=== PATIENT | female | born 2000 | race Caucasian/White ===

== ENCOUNTER 2024-02-05 22:45 | Observation (INO) ==
--- NOTE | 2024-02-05 23:00 | Emergency Department Note ---
Impression & Plan Acute appendicitis ED Provider Note CHIEF COMPLAINT: Abdominal pain HISTORY OF PRESENTING ILLNESS: This 23-year-old female patient presents to the emergency department for evaluation of abdominal pain, nausea, vomiting since 1500 today. The pain is worse in the middle of the abdomen, but extends to the upper and lower abdomen as well. She has continued nausea, but only 2 episodes of vomiting. She had a BM without improvement of her symptoms. Denies diarrhea, but her stools were a little softer than normal. Denies any urinary symptoms. Denies vaginal discharge, but has had symptoms like a yeast infection for the past couple weeks. She tried OTC Monistat without improvement. She states that she uses protection every time and feels like she is low risk for STI. LMP 5 days ago. She does not feel like there is a chance of . She denies chest pain or SOB, but sometimes the abdominal pain feels like it radiates up towards her chest. She rates her discomfort as 8/10. No previous abdominal surgeries. She had Chic-kallie-A at 6 pm. She had a few sips of water when she first came to the ER, but no water in the last 2 hours. REVIEW OF SYSTEMS: See HPI for pertinent positives and pertinent negatives. ALLERGIES: NKDA MEDICATIONS: None PAST MEDICAL HISTORY: Denies pertinent past medical or pertinent past surgical history PHYSICAL EXAM: VITALS: Vitals are noted on the nurse's note and reviewed by myself. GENERAL: Non toxic, in no acute distress, non-diaphoretic. SKIN: Capillary refill <2 sec. EYES: PERRLA. EOMI. Conjunctivae without injection, sclerae without icterus. NOSE: Patent without discharge. MOUTH: Mucous membranes moist. Uvula midline. Airway patent. NECK: Supple without nuchal rigidity. HEART: Regular rate and rhythm without murmurs gallops or rubs. LUNGS: Clear to auscultation bilaterally without wheezes, rales or rhonchi. No retractions or accessory muscle use. ABDOMEN: Positive bowel sounds x 4. Normal tympanic percussion. Soft, nontender to palpation. No masses or hepatosplenomegaly. Iverson sign negative. No CVA tenderness. No guarding, rigidity, or rebound tenderness. No focal RLQ or LLQ tenderness. PELVIC EXAM: Permission to perform the exam. Lemon Grower in the room for the exam. External genitalia normal. Vaginal canal with a thick yellowish and white discharge. Cervical os is closed. Cervix is erythematous, but without lesions and no cervical motion tenderness. Uterus is small and nontender. Adnexa nontender without obvious masses. MUSCULOSKELETAL: No gross musculoskeletal defects. NEURO: Patient was alert and oriented. No focal neurological deficits. DIFFERENTIAL DIAGNOSIS: Differential diagnosis includes hepatitis, pancreatitis, cholecystitis, cholelithiasis, appendicitis, kidney stone, pyelonephritis, UTI, gastritis, gastroenteritis, mesenteric adenitis, obstruction, constipation, hernia, abdominal abscess, perforation, diverticulitis, IBD, ischemic colitis, abdominal aortic aneurysm, , ectopic , ovarian cyst, ovarian torsion, acute salpingitis, or others. ED COURSE AND MEDICAL DECISION MAKING: MEDICATIONS GIVEN: Toradol 10 mg IV, Zofran 4 mg IV, Pepcid 20 mg IV, Tylenol 1000 mg IV. 1 L normal saline solution bolus. Diflucan 150 mg p.o. Rocephin 500 mg IV. Diflucan 150 mg p.o. Zosyn 4.5 g IV. INTERPRETATION OF LABS: I interpreted the labs with full lab results as below in the lab section of this note. Pertinent lab results discussed in the MDM section below. INTERPRETATION OF IMAGING: Imaging studies were interpreted by myself and read by radiology as per the imaging section of this note. CT scan of the abdomen pelvis with IV contrast shows changes of acute appendicitis with no evidence for perforation or abscess noted. There is associated mild free fluid in the pelvis. CONSULTATIONS: Martha Moran PA-C of general surgery MDM SUMMARY: I examined the patient. The patient started with abdominal pain, nausea, and vomiting at 1500 today. The symptoms have been intermittent since that time. The patient has also been having yeast infection type symptoms for the past couple weeks that did not improve with Monistat. She denies any other symptoms. On initial exam, the patient has no tenderness to palpation of the abdomen. Pelvic exam showed thick yellow and white discharge with vaginal and cervical erythema. I discussed CT scan imaging with the patient, but initially she declined. An IV lock was placed and labs were drawn. The patient was given Toradol 10 mg IV and Zofran 4 mg IV with improvement of her pain. White blood cell count normal at 7.28. Hemoglobin normal at 13.5. Platelet count normal at 370. Potassium 3.3, but CMP otherwise without significant abnormalities. Lipase is normal. Urinalysis with 2+ ketones, but no evidence for infection or blood. Urine test negative. Vaginal cultures and STI testing still pending. The patient initially had no tenderness to palpation on exam and her pain had improved after the IV Toradol and Zofran. Pelvic exam revealed a discharge concerning for a possible yeast infection as well as possible STI. The patient was given Diflucan 150 mg p.o. to cover for a possible yeast infection as well as Rocephin 500 mg IV to cover for possible gonorrhea. The plan was initially to then give the patient a doxycycline home pack and prescription. However, on reassessment the patient states that she is still having intermittent abdominal pain and was hesitant to be discharged home. I offered the patient a CT scan of her abdomen pelvis, but she wanted to try additional medication for her symptoms first. The patient was then given Tylenol 1000 mg IV and Pepcid 20 mg IV. She was given 1 L normal saline solution bolus due to the 2+ ketones in her urine. The patient was reassessed after this treatment. The patient only had mild tenderness to palpation on exam, but she continued with intermittent episodes of more significant pain. The patient stated that her symptoms and pain seem to be getting progressively worse. I discussed further workup including CT scan of the abdomen pelvis with the patient, but she was still undecided. The patient discussed her symptoms with her mother. The patient was then agreeable to CT scan of the abdomen and pelvis for further evaluation of her symptoms. CT scan of the abdomen pelvis with IV contrast shows changes of acute appendicitis with no evidence for perforation or abscess noted. There is associated mild free fluid in the pelvis. The patient was given Zosyn 4.5 g IV. I spoke with Martha Moran PA-C of general surgery who evaluated the patient in the ER. The patient will be admitted and surgery plans to take the patient to the OR in the morning. Please refer to surgery's dictation for further details. The patient's care was transferred in stable condition. DIAGNOSIS: Acute appendicitis Past Med/Surg History Problem List (Updated 02/06/24 @ 07:41 by Pushpa Fitch PA-C) Acute appendicitis (Acute) Medical History No acute medical problems Surgical History No pertinent past surgical history Social History Smoking Status: Never smoker Second Hand Exposure: No; Do You Dip or Chew Tobacco: No; Tobacco Cessation Education Requested by Patient: No Hx Alcohol Use: Yes Hx Substance Use: No Preferred Language: Kittitian Communication Ability: Effective Vp Packaging Required: No Beliefs That Will Affect Care: None Current Living Situation: Other Current Living Situation Comment: Off campus apartment Other Information That Helps Us Care for You: No Feels Safe at Home: Yes Safety Concerns: Feels Safe At This Time Assistive Devices: None Allergies Allergies Allergy/AdvReac Type Severity Reaction Status Date / Time No Known Allergies Allergy Verified 02/05/24 23:07 Home Meds Home Medications Medication Instructions Recorded Confirmed No Known Home Medications 02/05/24 02/05/24 Results & Data (ED) Vital Signs Vital Signs - 24 hr 02/05/24 22:48 02/05/24 23:15 02/05/24 23:30 Temperature 36.2 C L Temperature Source Temporal Artery Scan Pulse Rate 100 H 73 80 Pulse Rate from SpO2 Sensor 77 Respiratory Rate 18 17 Respiratory Effort / Characteristics Non-Labored Respiratory Depth Normal Blood Pressure 157/90 H 121/82 Blood Pressure Mean 112 97 Pulse Oximetry 97 99 Oxygen Delivery Method Room Air Room Air Sepsis Recent Fever Within 48 Hours No Sepsis New/Unexplained Change in Mental Status No Sepsis Action Taken by Nursing No Action Required 02/05/24 23:35 02/06/24 00:00 02/06/24 00:30 Temperature Temperature Source Pulse Rate 87 74 Pulse Rate from SpO2 Sensor Respiratory Rate 22 18 Respiratory Effort / Characteristics Respiratory Depth Blood Pressure 131/85 121/91 Blood Pressure Mean 102 97 Pulse Oximetry 98 99 100 Oxygen Delivery Method Room Air Room Air Room Air Sepsis Recent Fever Within 48 Hours Sepsis New/Unexplained Change in Mental Status Sepsis Action Taken by Nursing 02/06/24 01:00 02/06/24 02:00 02/06/24 02:30 Temperature Temperature Source Pulse Rate 70 70 78 Pulse Rate from SpO2 Sensor 74 70 76 Respiratory Rate 19 17 20 Respiratory Effort / Characteristics Respiratory Depth Blood Pressure 117/83 105/67 113/82 Blood Pressure Mean 92 79 92 Pulse Oximetry 97 97 98 Oxygen Delivery Method Room Air Room Air Room Air Sepsis Recent Fever Within 48 Hours Sepsis New/Unexplained Change in Mental Status Sepsis Action Taken by Nursing 02/06/24 03:00 Temperature Temperature Source Pulse Rate 79 Pulse Rate from SpO2 Sensor Respiratory Rate 18 Respiratory Effort / Characteristics Respiratory Depth Blood Pressure 118/92 Blood Pressure Mean 101 Pulse Oximetry 98 Oxygen Delivery Method Room Air Sepsis Recent Fever Within 48 Hours Sepsis New/Unexplained Change in Mental Status Sepsis Action Taken by Nursing Laboratory Data 02/06/24 06:10 02/06/24 06:10 Lab Results 02/05/24 02/05/24 Range/Units 22:58 23:07 WBC 7.28 (4.8-10.8) K/ul RBC 4.50 (4.20-5.40) M/uL Hgb 13.5 (12.0-16.0) g/dl Hct 39.9 (37.0-47.0) % MCV 88.7 (80.0-100.0) fL MCH 30.0 (25.0-34.0) pg MCHC 33.8 (32.0-36.0) g/dL RDW Std Deviation 37.0 (36.4-46.3) fL RDW Coeff of Brielle 11.5 (11.5-14.5) % Plt Count 370 (130-400) K/uL MPV 9.8 (9.4-12.4) fL Immature Gran % (Auto) 0.3 % Neut % (Auto) 75.3 % Lymph % (Auto) 15.9 % Lamb % (Auto) 6.5 % Eos % (Auto) 1.2 % Baso % (Auto) 0.8 % Neut # (Auto) 5.48 (1.40-6.50) K/uL Lymph # (Auto) 1.16 L (1.20-3.40) K/uL Lamb # (Auto) 0.47 (0.11-0.59) K/uL Eos # (Auto) 0.09 (0.00-0.50) K/uL Baso # (Auto) 0.06 (0.00-0.20) K/uL Immature Gran # (Auto) 0.02 (0.01-0.20) K/uL Sodium 137 (136-145) mmol/L Potassium 3.3 L (3.5-5.1) mmol/L Chloride 99 (98-107) mmol/L Carbon Dioxide 27 (21-32) mmol/L Anion Gap 11 (3-11) BUN 11 (6-23) mg/dl Creatinine 0.68 (0.6-1.2) mg/dl Est Cr Clr Drug Dosing 108.3 ml/min eGFR 126.99 BUN/Creatinine Ratio 16.2 (10-20) Glucose 94 (70-99(Fasting)) mg/dl Calcium 10.4 H (8.6-10.3) mg/dl Total Bilirubin 0.5 (0.2-1.0) mg/dl AST 16 (13-39) U/L ALT 11 (7-52) U/L Alkaline Phosphatase 41 (34-104) U/L Total Protein 8.2 (6.0-8.3) gm/dl Albumin 5.3 H (3.4-5.0) gm/dl Globulin 2.9 (2.5-4.0) gm/dl Albumin/Globulin Ratio 1.8 (0.9-2) Lipase 15 (11-82) U/L Urine Color Yellow Urine Appearance Cloudy A (Clear) Urine pH 6.0 (4.5-7.5) Ur Specific [place] 1.034 H (1.000-1.030) Urine Protein Negative (Negative) Urine Glucose (UA) Negative (Negative) Urine Ketones 2+ H (Negative) Urine Blood Negative (Negative) Urine Nitrite Negative (Negative) Urine Bilirubin Negative (Negative) Urine Urobilinogen Negative (Negative) Ur Leukocyte Esterase Negative (Negative) Urine WBC (Auto) 0-5 (0-5) /hpf Urine RBC (Auto) 0-2 (0-2) /hpf U Hyaline Cast (Auto) 3-5 H (0-2) /lpf U Epithel Cells (Auto) 3-5 H (0-2) /hpf Urine Bacteria (Auto) 2+ H (None Seen) Urine Test Negative (Negative) Administered Medications Acetaminophen (Ofirmev) 1,000 mg in 100 mls @ 400 mls/hr IV Q8H PRN PRN Reason: Pain Stop: 02/09/24 04:17 Last Infusion: 02/06/24 05:12 Dose: Infused Documented By: Admin: 02/06/24 04:31 Dose: 400 mls/hr Documented By: OWEN Lactated Ringer's (Lr) 1,000 mls @ 80 mls/hr IV .[id number] TYLER Stop: 02/07/24 05:17 Last Admin: 02/06/24 04:33 Dose: 80 mls/hr Documented By: OWEN Discontinued Medications Fluconazole (Fluconazole 50 Mg Tab) 150 mg PO NOW ONE Stop: 02/05/24 23:49 Last Admin: 02/06/24 00:01 Dose: 150 mg Documented By: JACOBO Famotidine (Pepcid 20mg Iv Push) 20 mg in 5 mls @ 2.5 mls/min IV NOW STA Stop: 02/05/24 23:08 Last Admin: 02/05/24 23:12 Dose: 2.5 mls/min Documented By: MARIAMA Acetaminophen (Ofirmev) 1,000 mg in 100 mls @ 400 mls/hr IV NOW STA Stop: 02/06/24 00:02 Last Infusion: 02/06/24 00:20 Dose: Infused Documented By: Admin: 02/06/24 00:01 Dose: 400 mls/hr Documented By: JACOBO Sodium Chloride (Nss) 1,000 mls @ 999 mls/hr IV .Q1H1M ONE Stop: 02/06/24 00:48 Last Infusion: 02/06/24 01:06 Dose: Infused Documented By: Admin: 02/06/24 00:02 Dose: 999 mls/hr Documented By: JACOBO Ceftriaxone Sodium 500 mg/ (Dextrose) 55 mls @ 110 mls/hr IV NOW STA Stop: 02/06/24 00:17 Last Infusion: 02/06/24 01:06 Dose: Infused Documented By: Admin: 02/06/24 00:22 Dose: 110 mls/hr Documented By: JACOOB Piperacillin Sod/Tazobactam Sod (Zosyn) 4.5 gm in 100 mls @ 200 mls/hr IV NOW ONE; Protocol Stop: 02/06/24 03:23 Last Infusion: 02/06/24 04:03 Dose: Infused Documented By: Admin: 02/06/24 03:21 Dose: 200 mls/hr Documented By: JACOBO Ioversol (Optiray 320 100ml) 100 ml IV ONCE ONE Stop: 02/06/24 01:26 Last Admin: 02/06/24 01:25 Dose: 93 ml Documented By: LESLIE Ketorolac Tromethamine (Ketorolac Tromethamine 15 Mg/Ml Vial) 10 mg IV NOW STA Stop: 02/05/24 23:08 Last Admin: 02/05/24 23:12 Dose: 10 mg Documented By: MARIAMA Ondansetron HCl (Ondansetron Inj 2 Mg/Ml 2 Ml Vial) 4 mg IV NOW STA Stop: 02/05/24 23:08 Last Admin: 02/05/24 23:12 Dose: 4 mg Documented By: MARIAMA Imaging Data Radiologist's Impression: Abdomen/Pelvis CT 02/06/24 01:07 EXAM: CT abd pelvis IV con only CLINICAL HISTORY: 93 ml optiray 320, pain at mid abd TECHNIQUE: Multiple contiguous axial images were obtained from the level of diaphragm to the pubis symphysis. This study was acquired after the IV administration of iodinated contrast material, given the patient's indications for the examination. If IV contrast material had not been administered, the likelihood of detecting abnormalities relevant to the patient's condition would have been substantially decreased. Coronal and sagittal reformatted images were generated and reviewed to improve anatomic localization and optimize lesion detection. CT scan was performed according to ALARA (as low as reasonably achievable). COMPARISON: None. FINDINGS: The visualized lung bases are clear. ABDOMEN/PELVIS: The liver is normal in size and attenuation. No focal liver lesions are seen. There is no intra or extrahepatic biliary ductal dilatation. Hepatic vasculature is patent. The gallbladder is unremarkable. The spleen, pancreas, and adrenal glands are unremarkable. The kidneys are normal in size and attenuation. There is no hydronephrosis or perinephric fat stranding. No renal calculi or renal masses are identified. The ureters are normal in caliber and no ureteral calculi are seen. The bladder is normal in contour. No evidence of focal or diffuse bowel wall thickening or evidence of bowel obstruction is seen. Appendix is dilated measuring 11 mm in diameter. Hypodense fluid is noted within it. Small appendicolith is noted. Mild periappendiceal fat stranding is noted. No signs of perforation. Reactive cecal wall edema is noted. Tip of the inflamed appendix is reaching up to the right adnexa which is not seen separately from it. Few small reactive lymph nodes are noted in the right iliac fossa. Mild free fluid is noted in the pelvis. The aorta is normal in caliber. No aggressive appearing osseous lesions are identified. IMPRESSION: 1. Changes of acute appendicitis as described above. No signs of perforation are noted. 2. Associated mild free fluid is noted in the pelvis. Electronically signed by Alpesh Blancas 02-06-2024 02:27 AM Discharge Plan Visit Data Chief Complaint: Abdominal Pain Stated Complaint: ABD PAIN, NAUSEA, VOMITING, ED Provider: Yari Frazier ED Midlevel Provider: Pushpa Fitch Discharge Problem: Acute appendicitis Patient Disposition: Admitted As Inpatient Condition: Good Discharge Instructions Interventions: ED Discharge Assessment Last Done: 02/06/24 04:03 Discharge Problem: Acute appendicitis Qualifiers: Acute appendicitis type: unspecified acute appendicitis type Qualified Code(s): K35.80 - Unspecified acute appendicitis
[2024-02-05] MEDS: KETOROLAC TROMETHAMINE 15 MG/ML VIAL IV STA (23:12)
[2024-02-05] MEDS: FAMOTIDINE 20MG IV PUSH 20 MG/5 ML SYR IV STA (23:12)
[2024-02-05] MEDS: ONDANSETRON INJ 2 MG/ML 2 ML VIAL IV STA (23:12)
[2024-02-05 23:24] LABS: Appearance Urine Cloudy (Clear); Bacteria Urine Automated 2+ (None Seen); Bilirubin Urine Negative (Negative); Blood Urine Negative (Negative); Color Urine Yellow; Glucose Urine UA Negative (Negative); Ketones Urine 2+ (Negative); Leukocyte Esterase Urine Negative (Negative); Nitrite Urine Negative (Negative); Pregnancy Test, Urine Negative (Negative); Protein Urine Negative (Negative); RBC Urine Automated 0-2 /hpf (0-2); Specific Gravity Urine 1.034 (1.000-1.030); Urobilinogen Urine Negative (Negative); WBC Urine Automated 0-5 /hpf (0-5)
[2024-02-05 23:31] LABS: Basophils # (auto) 0.06 K/uL (0.00-0.20); Basophils % (auto) 0.8 %; Eosinophils # (auto) 0.09 K/uL (0.00-0.50); Eosinophils % (auto) 1.2 %; Hematocrit (blood only) 39.9 % (37.0-47.0); Hemoglobin 13.5 g/dl (12.0-16.0); Immature Granulocytes # (auto) 0.02 K/uL (0.01-0.20); Immature Granulocytes % (auto) 0.3 %; Lymphocytes # (auto) 1.16 K/uL (1.20-3.40); Lymphocytes % (auto) 15.9 %; Mean Corpuscular Hgb Conc 33.8 g/dL (32.0-36.0); Mean Corpuscular Volume 88.7 fL (80.0-100.0); Mean Platelet Volume 9.8 fL (9.4-12.4); Monocytes # (auto) 0.47 K/uL (0.11-0.59); Monocytes % (auto) 6.5 %; Neutrophils # (auto) 5.48 K/uL (1.40-6.50); Neutrophils % (auto) 75.3 %; Platelet Count 370 K/uL (130-400); RDW Coefficient of Variation 11.5 % (11.5-14.5); White Blood Count 7.28 K/ul (4.8-10.8)
[2024-02-05 23:46] LABS: Albumin Globulin Ratio 1.8 (0.9-2); Albumin Level 5.3 gm/dl (3.4-5.0); BUN Creatinine Ratio 16.2 (10-20); Bilirubin,Total 0.5 mg/dl (0.2-1.0); Calcium 10.4 mg/dl (8.6-10.3); Creatinine Clr Calc Pharmacy 108.3 ml/min; Globulin 2.9 gm/dl (2.5-4.0); Potassium 3.3 mmol/L (3.5-5.1); Total Protein 8.2 gm/dl (6.0-8.3)
[2024-02-06] MEDS: FLUCONAZOLE 50 MG TAB PO ONE (00:01)
[2024-02-06] MEDS: ACETAMINOPHEN 1,000 MG/100 ML VIAL IV STA (00:01)
[2024-02-06] MEDS: SODIUM CHLORIDE 0.9% 1,000 ML IV ONE (00:02)
[2024-02-06] MEDS: cefTRIAXone SODIUM 500 MG in DEXTROSE 5% 50 ML IV STA (00:22)
[2024-02-06] MEDS: OPTIRAY 320 100ml IV ONE (01:25)
--- NOTE | 2024-02-06 02:27 | CT Scan Report ---
EXAM: CT abd pelvis IV con only CLINICAL HISTORY: 93 ml optiray 320, pain at mid abd TECHNIQUE: Multiple contiguous axial images were obtained from the level of diaphragm to the pubis symphysis. This study was acquired after the IV administration of iodinated contrast material, given the patient's indications for the examination. If IV contrast material had not been administered, the likelihood of detecting abnormalities relevant to the patient's condition would have been substantially decreased. Coronal and sagittal reformatted images were generated and reviewed to improve anatomic localization and optimize lesion detection. CT scan was performed according to ALARA (as low as reasonably achievable). COMPARISON: None. FINDINGS: The visualized lung bases are clear. ABDOMEN/PELVIS: The liver is normal in size and attenuation. No focal liver lesions are seen. There is no intra or extrahepatic biliary ductal dilatation. Hepatic vasculature is patent. The gallbladder is unremarkable. The spleen, pancreas, and adrenal glands are unremarkable. The kidneys are normal in size and attenuation. There is no hydronephrosis or perinephric fat stranding. No renal calculi or renal masses are identified. The ureters are normal in caliber and no ureteral calculi are seen. The bladder is normal in contour. No evidence of focal or diffuse bowel wall thickening or evidence of bowel obstruction is seen. Appendix is dilated measuring 11 mm in diameter. Hypodense fluid is noted within it. Small appendicolith is noted. Mild periappendiceal fat stranding is noted. No signs of perforation. Reactive cecal wall edema is noted. Tip of the inflamed appendix is reaching up to the right adnexa which is not seen separately from it. Few small reactive lymph nodes are noted in the right iliac fossa. Mild free fluid is noted in the pelvis. The aorta is normal in caliber. No aggressive appearing osseous lesions are identified. IMPRESSION: 1. Changes of acute appendicitis as described above. No signs of perforation are noted. 2. Associated mild free fluid is noted in the pelvis. Electronically signed by Alpesh Blancas 02-06-2024 02:27 AM
[2024-02-06] MEDS: PIPERACILLIN/TAZOBACTAM 4.5 GM/100 ML BAG IV ONE ×2 (03:21→12:20)
--- NOTE | 2024-02-06 03:45 | History & Physical Report ---
Date of Service February 06, 2024 Assessment & Plan (1) Acute appendicitis: Plan: Patient is a 23-year old female who presented to the ED last evening due to ongoing abdominal pain, nausea and vomiting that started around 3pm. Upon workup she was found to have evidence of a dilated appendix of 11mm with a small appendicolith and periappendiceal fat stranding consistent with acute appendicitis. She was evaluated at bedside early this morning and on exam she is tender in the periumbilical region however is nontoxic appearing and has no signs of acute abdomen. She is afebrile, vitals stable, and WBC 7.28. Patient denies any previous abdominal surgeries and otherwise has no other preexisting medical conditions. Patient will be admitted to the surgical service to med/surg floor. Will keep strict NPO and IV hydration with LR IV antibiotic coverage with Zosyn Pain control with IV Tylenol and morphine as needed. Patient will tentatively undergo surgical intervention for appendectomy today and she is in agreement with current plan of care. History of Present Illness Chief Complaint: Abdominal pain Primary Care Provider: [facility] Patient is a 23-year-old female with no significant past medical history, who presented to the ED late last evening due to complaints of abdominal pain, shaina sea and vomiting. Patient states that she started with abdominal pain around 3 PM in the afternoon that progressively worsened throughout the day and evening. Patient states that the pain started in the middle of her abdomen, mostly located in her umbilical region and at times radiates over the lower portions of her abdomen. She states she did try to eat dinner around 6 PM and when she had gotten back to her apartment she had 1 episode of emesis. Patient states that she also did have a bowel movement without any improvement of her symptoms. Upon arrival to the ED she did have an additional episode of emesis as well. Of note, patient states she's had a yeast infection for a week or so and did try [id number] Monistat without improvement, in the ED she did undergo a pelvic exam and was given a dose of Rocephin. Patient states that her last menstrual period ended approximately 5 days ago. Upon workup this evening her labs were WNL however CT A/P revealed dilated appendix at 11mm with a small appendicolith and periappendiceal fat stranding suggestive of acute appendicitis. Patient was seen and evaluated at bedside. She is resting comfortably in bed with stable vitals. She states her abdominal pain is currently well controlled however prior was an 8/10 in severity. On exam she is slightly tender in the mid abdominal region however no signs of peritonitis. Patient denies any previous abdominal surgeries. She denies any changes in bowel or bladder habits or associated fevers or chills with the onset of her symptoms. Allergies Allergy/AdvReac Type Severity Reaction Status Date / Time No Known Allergies Allergy Verified 02/05/24 23:07 Home Medications Medication Instructions Recorded Confirmed Type oxycodone 5 mg tablet 5 - 10 mg (1 - 2 x 5 mg) PO 02/06/24 Rx .[id number] PRN pain, for initial therapy, max 6 tabs per day #15 tabs Past Med/Surg History Problem List (Updated 02/06/24 @ 07:41 by Pushpa Fitch PA-C) Acute appendicitis (Acute) Medical History No acute medical problems Surgical History No pertinent past surgical history Social History Smoking Status: Never smoker Second Hand Exposure: No; Do You Dip or Chew Tobacco: No; Tobacco Cessation Education Requested by Patient: No Hx Alcohol Use: Yes Hx Substance Use: No Preferred Language: Wallisian Communication Ability: Effective 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 Beliefs That Will Affect Care: None Current Living Situation: Other Current Living Situation Comment: Off campus apartment Other Information That Helps Us Care for You: No Feels Safe at Home: Yes Safety Concerns: Feels Safe At This Time Assistive Devices: None Review of Systems Review of Systems: All systems reviewed & are unremarkable except as noted in HPI & below Physical Exam Constitutional: WD/WN, vitals as above Respiratory: normal respiratory effort, lungs clear to auscultation Cardiovascular: RRR, no murmur, no edema Gastrointestinal (Abdomen): Inspection/Auscultation: abdomen normal to inspection and normal bowel sounds; abdomen not distended Percussio n/Palpation: + abdomen tender (periumbilical region ) and abdomen soft; no guarding, abdomen not rigid and abdomen not firm Skin: no rashes, warm and dry Psychiatric: A+Ox3, euthymic affect Results & Data Results & Data Vital Signs (Past 12 Hours) Vital Signs Temp Pulse Resp BP Pulse Ox O2 Del Method 02/06/24 03:00 79 18 118/92 98 Room Air 02/06/24 02:30 78 20 113/82 98 Room Air 02/06/24 02:00 70 17 105/67 97 Room Air 02/06/24 01:00 70 19 117/83 97 Room Air 02/06/24 00:30 74 18 121/91 100 Room Air 02/06/24 00:00 87 22 131/85 99 Room Air 02/05/24 23:35 98 Room Air 02/05/24 23:30 80 17 121/82 99 Room Air 02/05/24 23:15 73 02/05/24 22:48 36.2 C L 100 H 18 157/90 H 97 Room Air Diagnostic Findings EXAM: CT abd pelvis IV con only CLINICAL HISTORY: 93 ml optiray 320, pain at mid abd TECHNIQUE: Multiple contiguous axial images were obtained from the level of diaphragm to the pubis symphysis. This study was acquired after the IV administration of iodinated contrast material, given the patient's indications for the examination. If IV contrast material had not been administered, the likelihood of detecting abnormalities relevant to the patient's condition would have been substantially decreased. Coronal and sagittal reformatted images were generated and reviewed to improve anatomic localization and optimize lesion detection. CT scan was performed according to ALARA (as low as reasonably achievable). COMPARISON: None. FINDINGS: The visualized lung bases are clear. ABDOMEN/PELVIS: The liver is normal in size and attenuation. No focal liver lesions are seen. There is no intra or extrahepatic biliary ductal dilatation. Hepatic vasculature is patent. The gallbladder is unremarkable. The spleen, pancreas, and adrenal glands are unremarkable. The kidneys are normal in size and attenuation. There is no hydronephrosis or perinephric fat stranding. No renal calculi or renal masses are identified. The ureters are normal in caliber and no ureteral calculi are seen. The bladder is normal in contour. No evidence of focal or diffuse bowel wall thickening or evidence of bowel obstruction is seen. Appendix is dilated measuring 11 mm in diameter. Hypodense fluid is noted within it. Small appendicolith is noted. Mild periappendiceal fat stranding is noted. No signs of perforation. Reactive cecal wall edema is noted. Tip of the inflamed appendix is reaching up to the right adnexa which is not seen separately from it. Few small reactive lymph nodes are noted in the right iliac fossa. Mild free fluid is noted in the pelvis. The aorta is normal in caliber. No aggressive appearing osseous lesions are identified. IMPRESSION: 1. Changes of acute appendicitis as described above. No signs of perforation are noted. 2. Associated mild free fluid is noted in the pelvis. Code Status & VTE Plan VTE Prophylaxis Plan VTE Prophylaxis will be ordered: Yes Supervising Physician Co-Signing Physician Notes This case has been discussed with me. I have reviewed this case. This patient will be taken to the operating room for laparoscopic appendectomy. The details of the procedure are explained to the patient and consent is obtained. PG Care Time/CCT Total # of Minutes Spent Total Time Spent with Patient: Total time spent is greater than 50% in coordination of care (as documented) at patient's floor/unit and/or counseling patient: Coding Level of Care Code 92981 INT INP/OBS CARE 40MIN Diagnoses Acute appendicitis K35.80
[2024-02-06] MEDS ORDERED: ONDANSETRON INJ 2 MG/ML 2 ML VIAL IV PRN ×2 (04:18→11:07)
[2024-02-06] MEDS ORDERED: MoRPHine SULFATE 2 MG/ML CARP IV PRN (04:18)
[2024-02-06] MEDS ORDERED: MoRPHine SULFATE 4 MG/ML 1 ML CARP\\VIAL IV PRN (04:18)
[2024-02-06] MEDS: ACETAMINOPHEN 1,000 MG/100 ML VIAL IV PRN (04:31)
[2024-02-06] MEDS: LACTATED RINGER'S 1,000 ML IV SCH (04:33)
[2024-02-06 06:39] LABS: Basophils # (auto) 0.05 K/uL (0.00-0.20); Basophils % (auto) 0.5 %; Eosinophils # (auto) 0.01 K/uL (0.00-0.50); Eosinophils % (auto) 0.1 %; Hematocrit (blood only) 36.2 % (37.0-47.0); Hemoglobin 12.2 g/dl (12.0-16.0); Immature Granulocytes # (auto) 0.02 K/uL (0.01-0.20); Immature Granulocytes % (auto) 0.2 %; Lymphocytes # (auto) 0.98 K/uL (1.20-3.40); Mean Corpuscular Hemoglobin 29.9 pg (25.0-34.0); Mean Corpuscular Hgb Conc 33.7 g/dL (32.0-36.0); Mean Corpuscular Volume 88.7 fL (80.0-100.0); Mean Platelet Volume 9.9 fL (9.4-12.4); Monocytes # (auto) 0.75 K/uL (0.11-0.59); Monocytes % (auto) 7.7 %; Neutrophils # (auto) 7.97 K/uL (1.40-6.50); Neutrophils % (auto) 81.5 %; Platelet Count 334 K/uL (130-400); RDW Coefficient of Variation 11.6 % (11.5-14.5); RDW Standard Deviation 37.3 fL (36.4-46.3); Red Blood Count 4.08 M/uL (4.20-5.40); White Blood Count 9.78 K/ul (4.8-10.8)
[2024-02-06 06:57] LABS: BUN Creatinine Ratio 14.8 (10-20); Calcium 9.5 mg/dl (8.6-10.3); Creatinine Clr Calc Pharmacy 120.7 ml/min; Potassium 3.9 mmol/L (3.5-5.1)
--- NOTE | 2024-02-06 10:33 | Anesthesiology Consultation ---
Date of Service February 06, 2024 Assessment & Plan Chart Review Chart Review: Acceptable Risk for Surgery and Patient NOT seen in Pre Admission Testing Consults Requested none History Surgery Operation Date: 02/06/24 07:00 Proposed Procedures p Laparoscopic Appendectomy - Audra Woodard DO Height/Weight Height: 5 ft 3 in Weight: 54.3 kg Allergies Allergy/AdvReac Type Severity Reaction Status Date / Time No Known Allergies Allergy Verified 02/05/24 23:07 Medications Home Medications Medication Instructions Recorded Confirmed Last Taken oxycodone 5 mg tablet 5 - 10 mg (1 - 2 x 5 mg) PO 02/06/24 Unknown .[id number] PRN pain, for initial therapy, max 6 tabs per day #15 tabs Active Medications Generic Name Dose Route Start Last Admin Trade Name Freq PRN Reason Stop Dose Admin Acetaminophen 1,000 mg in 100 mls @ 400 mls/hr 02/06/24 04:18 02/06/24 05:12 Ofirmev IV 02/09/24 04:17 Infused Q8H PRN Infusion Pain Lactated Ringer's 1,000 mls @ 80 mls/hr 02/06/24 04:18 02/06/24 04:33 Lr IV 02/07/24 05:17 80 mls/hr .[id number] TYLER Administration Past Medical History Medical History No acute medical problems Past Surgical History Surgical History No pertinent past surgical history Social History Smoking Status: Never smoker Do You Dip or Chew Tobacco: No Hx Alcohol Use: Yes alcohol intake frequency: holidays/special occasions only Hx Substance Use: No Physical Exam Vital Signs Last Vital Signs Temp 36.8 C 02/06/24 07:16 Pulse 82 02/06/24 07:16 Resp 16 02/06/24 07:16 BP 112/72 02/06/24 07:16 Pulse Ox 98 02/06/24 07:16 O2 Del Method Room Air 02/06/24 07:16 Testing Laboratory Results 02/06/24 06:10 02/06/24 06:10 Urine Color Yellow 02/05/24 22:58 Urine Appearance Cloudy (Clear) A 02/05/24 22:58 Urine pH 6.0 (4.5-7.5) 02/05/24 22:58 Ur Specific [place] 1.034 (1.000-1.030) H 02/05/24 22:58 Urine Protein Negative (Negative) 02/05/24 22:58 Urine Glucose (UA) Negative (Negative) 02/05/24 22:58 Urine Ketones 2+ (Negative) H 02/05/24 22:58 Urine Nitrite Negative (Negative) 02/05/24 22:58 Ur Leukocyte Esterase Negative (Negative) 02/05/24 22:58 Urine WBC (Auto) 0-5 /hpf (0-5) 02/05/24 22:58 Urine RBC (Auto) 0-2 /hpf (0-2) 02/05/24 22:58 U Hyaline Cast (Auto) 3-5 /lpf (0-2) H 02/05/24 22:58 U Epithel Cells (Auto) 3-5 /hpf (0-2) H 02/05/24 22:58 Urine Bacteria (Auto) 2+ (None Seen) H 02/05/24 22:58 Urine Test Negative (Negative) 02/05/24 22:58 02/05/24 22:58 Urine Test Negative
[2024-02-06] MEDS ORDERED: ARTIFICIAL TEARS OP OINT 3.5 GM TUBE ONE (10:34)
[2024-02-06] MEDS ORDERED: MIDAZOLAM HCL 1 MG/ML 2ML VIAL ONE (10:37)
[2024-02-06] MEDS ORDERED: fentaNYL citrate PF 100 MCG/2 ML VIAL ONE (10:37)
[2024-02-06] MEDS ORDERED: PROPOFOL IV EMULSION 10 MG/ML 20 ML VIAL IV ONE (10:40)
[2024-02-06] MEDS ORDERED: LIDOCAINE 2% 2 ML VIAL/AMP(20MG/ML) INFIL ONE (10:40)
[2024-02-06] MEDS ORDERED: ATROPINE SULFATE 0.1 MG/ML 10ML SYR IV PRN (11:07)
[2024-02-06] MEDS ORDERED: ePHEDrine sulfate 50 MG/ML AMP IV PRN (11:07)
[2024-02-06] MEDS ORDERED: fentaNYL citrate PF 100 MCG/2 ML VIAL IV PRN (11:07)
[2024-02-06 11:11] LABS: Bacterial Vaginosis RNA Negative (Negative)
[2024-02-06 11:26] LABS: Candida glabrata RNA Negative (Negative); Candida species group RNA Negative (Negative); Trichomonas vaginalis RNA Negative (Negative)
[2024-02-06] MEDS ORDERED: ONDANSETRON INJ 2 MG/ML 2 ML VIAL ONE (11:34)
[2024-02-06] MEDS ORDERED: DEXAMETHASONE SOD INJ 4 MG/ML VIAL ONE (11:34)
[2024-02-06 11:38] LABS: Mycoplasma Genitalium RNA Negative (Negative)
[2024-02-06] MEDS ORDERED: ePHEDrine sulfate 50 MG/5 ML SYR ONE (11:56)
[2024-02-06] MEDS ORDERED: ceFAZolin 330 MG/ML 1 GM VIAL ONE (12:04)
[2024-02-06] MEDS ORDERED: SUGAMMADEX SODIUM 200 MG/2 ML VIAL IV ONE (12:20)
[2024-02-06] MEDS: BUPIVACAINE/EPINEPHRINE 0.5% MPF 1:200,000 30 ML VIAL ONE (12:28)
--- NOTE | 2024-02-06 12:50 | Anesthesiology Progress Note ---
Date of Service February 06, 2024 Anesthesia Post Procedure Vital Signs Vital Signs: Temp Pulse Pulse Resp BP BP BP 02/06/24 10:39 36.6 C 85 20 130/66 02/06/24 07:16 36.8 C 82 16 112/72 02/06/24 04:15 36.9 C 16 118/78 02/06/24 03:30 89 18 113/72 02/06/24 03:00 79 18 118/92 02/06/24 02:30 78 20 113/82 02/06/24 02:00 70 17 105/67 02/06/24 01:00 70 19 117/83 02/06/24 00:30 74 18 121/91 02/06/24 00:00 87 22 131/85 02/05/24 23:35 02/05/24 23:30 80 17 121/82 02/05/24 23:15 73 02/05/24 22:48 36.2 C L 100 H 18 157/90 H Pulse Ox O2 Del Method 02/06/24 10:39 99 Room Air 02/06/24 07:16 98 Room Air 02/06/24 04:15 99 Room Air 02/06/24 03:30 02/06/24 03:00 98 Room Air 02/06/24 02:30 98 Room Air 02/06/24 02:00 97 Room Air 02/06/24 01:00 97 Room Air 02/06/24 00:30 100 Room Air 02/06/24 00:00 99 Room Air 02/05/24 23:35 98 Room Air 02/05/24 23:30 99 Room Air 02/05/24 23:15 02/05/24 22:48 97 Room Air Pain Intensity Abdomen: Pain Intensity: 6 Transfer of Care Handoff Completed per policy Notes Mental Status: alert / awake / arousable Patient Amnestic to Procedure: Yes Nausea / Vomiting: adequately controlled Pain: adequately controlled Airway Patency, RR, SpO2: stable & adequate BP & HR: stable & adequate Hydration State: stable & adequate Anesthetic Complications: no major complications apparent and Pt Satisfied with anesthetic care
--- NOTE | 2024-02-06 13:00 | Operative Report ---
PG Post Operative Report Pre & Post Diagnosis Operation Date: 02/06/24 07:00 Pre-Op Diagnosis: Acute Appendicitis Post-Op Diagnosis: Acute Appendicitis I identified the patient and participated in the time-out.: Yes Procedure Operation Date: 02/06/24 07:00 Actual Procedures p Laparoscopic Appendectomy(Not Applicable) - Audra Woodard DO Surgeon Audra Woodard DO Outside Operator HEAVEN [place] Estimated Blood Loss 1 Findings Consistent with Post-Op Diagnosis Specimens Appendix Anesthesia Type General Complications None Indications The patient presented to the ED with acute appendicitis that was also confirmed by CT. Description of Procedure The patient was brought back to the operating room and placed on the operating room table in supine position. She was connected to cardiac and oxygen monitoring, supplemental O2 was provided and a secure airway was established. The abdomen was prepped and draped in typical sterile fashion and a timeout was conducted. 2 grams of Ancef was administered. Local anesthetic was injected into the skin and subcutaneous tissues at all incisions sites prior to making incisions and all incisions were made with an 11 blade. A veress needle was used to access the intra-abdominal space at the infraumbilical fold and CO2 insufflation was initiated to establish pneumoperitoneum to a goal pressure of 15mmHg. Once this pressure was achieved, a 5mm trocar was inserted using direct visualization with a 5mm laparoscope in a 5mm optiview trocar. A 12mm trocar was inserted at the LLQ under direct visualization and a 5mm trocar at the midline suprapubic region. No injuries seen to the intra-abdominal structures during insertion of the veress needle or trocars. The OR table was positioned in Trendelenburg position and left side down. There was physiologic fluid in the pelvis that was suctioned away. The uterus and ovaries appeared normal. The appendix was identified at the right lower quadrant, dilated and thickened in dicative of an early acute appendicitis. The surrounding serosa and fatty omentum were softly adhesed to the appendix. These adhesions were mobilized and gently lysed using sonicision and blunt dissection. The mesoappendix containing the periappendiceal artery was ligated and transected using the sonicision energy device. Once the appendix was dissected free to expose the entire base of the appendix to the cecum, a purple loaded 45 mm Endo KARLA stapler was used to ligate and transect the appendix away from the base of the cecum. Excess megan from the stapler cartridge were suctioned away using the suction. There was no bleeding at the surgical site or from any other trocar sites. The appendix was placed in an Endo Catch bag and removed from the abdomen. This is sent to pathology for further analysis. The OR table was returned to neutral position. The pelvis and right lower quadrant were again checked for fluid. There was no excess fluid and again no bleeding at the surgical site. The staple line was covered with surrounding fatty tissue and omentum. The instruments were removed. CO2 was discontinued and pneumoperitoneum was evacuated through the trocars. The trocars were then removed. The fascia at the left lower quadrant incision was closed with 0 Vicryl suture. The skin incisions were approximated using 4-0 Vicryl suture. The abdomen was wiped clean with a saline soaked lap pad and dried. Dermabond was used to seal the incisions. The patient tolerated the procedure very well. She was awakened from anesthesia, the secure airway was removed and she was transferred to recovery in stable condition. I attest to the content of the Intraoperative Record and any orders documented therein. Any exceptions are noted below.
[2024-02-06] MEDS ORDERED: oxyCODONE HCL IR 5 MG TAB (IMMEDIATE RELEASE) PO PRN ×2 (13:32)
[2024-02-06 15:03] LABS: Chlam trach RNA(Genit,Ureth,Ur Not Detected (NotDetected); GC(Neis gon)RNA(Genit,Ureth,Ur Not Detected (NotDetected)
[2024-02-06 15:53] VITALS: BP 108/65; PULSE 82; RESP 16; TEMP 97.5; O2SAT 99
== END 2024-02-06 17:03 | disposition home or self-care (01) ==
LOC: ED 22:45 → 3E 22:45